=== PATIENT | female | born 1960 | race Two or more races ===

== ENCOUNTER 2021-05-09 08:08 | Outpatient (CLI) | payer OTHER | END 2021-05-09 08:23 | disposition home or self-care (01) | LOC: SONOGRAMA 08:08 | PROVIDERS: ATTEND Pathology Anatomic Pathology & Clinical Pathology | DX: D34 Benign neoplasm of thyroid gland (principal); E04.8 Other specified nontoxic goiter; E07.89 Other specified disorders of thyroid ==